=== PATIENT | male | born 1955 | race Caucasian/White ===

== ENCOUNTER 2021-11-21 05:32 | Day surgery (SDC) | payer MEDICARE, MEDICAID ==
[~2021-11-21] VITALS: Ht 175.3 cm; Wt 92.7 kg
[~2021-11-21 05:32] MED LIST: SODIUM CHLORIDE 0.9% 1,000 ML IV ONE
[2021-11-21] MEDS ORDERED: LIDOCAINE/PF 2% 5 ML VIAL IM ONE (05:33)
[2021-11-21] MEDS ORDERED: PROPOFOL 1% 20 ML VIAL IVP ONE (05:33)
[2021-11-21] MEDS ORDERED: SODIUM CHLORIDE 0.9% 1,000 ML ONE (05:43)
[2021-11-21 05:59] LABS: COVID AG,FIA SOURCE NASAL SWAB
[2021-11-21] MEDS ORDERED: METO25XL PO (06:55)
[2021-11-21] MEDS ORDERED: TAMS-13 PO (06:56)
[2021-11-21] MEDS ORDERED: SODI650T33 PO (06:57)
[2021-11-21] MEDS ORDERED: ATOR40TA28 PO (06:58)
[2021-11-21] MEDS ORDERED: NIFE90TA63 PO (06:58)
[2021-11-21] MEDS ORDERED: FURO40 PO (06:59)
[2021-11-21] MEDS ORDERED: OMEP20 PO ×2 (07:00→08:25)
[2021-11-21] MEDS ORDERED: METO5TAB95 PO (07:01)
[2021-11-21] MEDS ORDERED: DOCU-385 PO (07:01)
== END 2021-11-21 09:20 | disposition home or self-care (01) ==
LOC: SURGERY 05:32
PROVIDERS: ATTEND Surgery
DX: D12.3 Benign neoplasm of transverse colon (principal); D12.2 Benign neoplasm of ascending colon; K29.70 Gastritis, unspecified, without bleeding; K57.30 Diverticulosis of large intestine without perforation or abscess without bleeding; K63.89 Other specified diseases of intestine; I10 Essential (primary) hypertension; Z98.890 Other specified postprocedural states; Z79.899 Other long term (current) drug therapy
CPT/HCPCS: 43239; 45385; 87426; 88305; 88312; 88313; 93005; C1769; C9803; J2704; J3490; J7030